=== PATIENT | female | born 1955 | race Caucasian/White ===

== ENCOUNTER 2017-02-02 12:09 | Emergency (ER) | payer OTHER ==
[2017-02-02 13:29] LABS: BILIRUBIN NEGATIVE (NEGATIVE); BLOOD 2+ Ery/uL (NEGATIVE); CLARITY CLEAR (CLEAR); COLOR YELLOW (YELLOW); GLUCOSE (U) TRACE mg/dL (NORMAL); KETONE (U) NEGATIVE (NEGATIVE); LEUKOCYTES 1+ Leu/uL (NEGATIVE); NITRITE POSITIVE (NEGATIVE); PROTEIN TRACE (LOW) mg/dL (NEGATIVE); SPECIFIC GRAVITY 1.025 (1.001-1.030); UROBILINOGEN 0.2 mg/dL (0.2-1.0); pH 5.5 (5.0-9.0)
[2017-02-02 13:33] LABS: BACTERIA 3+; MUCOUS TRACE; URINARY RBC 20-50
[2017-02-02 16:17] LABS: CREATININE 0.6 mg/dL (0.5-1.0); POTASSIUM 3.9 mmol/L (3.5-5.1)
[2017-02-02 17:01] LABS: BASOPHIL 0.2 % (0-2); EOSINOPHIL 0.8 % (0-5); HCT 36.6 % (37.0-47.0); HGB 12.4 g/dl (12.5-16.0); LYMPHOCYTE 20.6 % (15-48); MCH 31.1 pg (25.0-31.0); MCHC 33.9 g/dL (32.0-36.0); MCV 91.7 fL (78.0-100.0); MONOCYTE 14.1 % (0-12); MPV 10.6 fL (6.0-9.5); NEUTROPHIL 64.3 % (41-80); PLT 213 K/uL (150-400); RBC 3.99 M/uL (4.20-5.40); RDW 13.5 % (11.5-14.0); WBC 10.3 K/uL (4.0-10.5)
== END 2017-02-02 18:00 | disposition home or self-care (01) ==
LOC: FER 12:09
PROVIDERS: Emergency Medicine
DX: N13.2 Hydronephrosis with renal and ureteral calculous obstruction (principal); I25.2 Old myocardial infarction; E11.9 Type 2 diabetes mellitus without complications; E78.5 Hyperlipidemia, unspecified; Z87.442 Personal history of urinary calculi; Z79.899 Other long term (current) drug therapy; Z79.84 Long term (current) use of oral hypoglycemic drugs; Z90.49 Acquired absence of other specified parts of digestive tract; Z90.710 Acquired absence of both cervix and uterus
CPT/HCPCS: 36415; 80053; 81001; 85025; J2270

== ENCOUNTER 2021-05-18 16:28 | Emergency (ER) | payer MEDICARE, OTHER ==
[~2021-05-18 16:28] MED LIST: ASPIRIN EC81 MG PO; BACTRIM DS TAB1 EACH PO; BREO ELLIPTA 11 EACH INH; CLARITIN10 MG PO; CYMBALTA 30MG C30 MG PO; DUONEB 2.5-0.5M1 AMP INH; EYE DROP TEARS15 ML EYEBOTH; FLONASE ALLER15.8 ML; GLUCOTROL5 MG PO; LIPITOR20 MG PO; METFORMIN HCL500 MG PO; NEURONTIN300 MG PO; NORVASC2.5 MG PO; NORVASC5 MG PO; PREDNISONE 10MG10 MG PO; PRINIVIL20 MG PO; TIZANIDINE HCL4 M1 PO; TOPROL XL 25MG25 MG PO; VENTOLIN (2.5 MG/3 M INH; VICTOZA 2-0.6 MG/0.1 SC
[2021-05-18 17:14] LABS: BILIRUBIN NEGATIVE (NEGATIVE); BLOOD NEGATIVE Ery/uL (NEGATIVE); CLARITY CLEAR (CLEAR); COLOR YELLOW (YELLOW); GLUCOSE (U) 1+ mg/dL (NORMAL); LEUKOCYTES 1+ Leu/uL (NEGATIVE); NITRITE POSITIVE (NEGATIVE); PROTEIN NEGATIVE (NEGATIVE); SPECIFIC GRAVITY >=1.030 (1.001-1.030); UROBILINOGEN 0.2 mg/dL (0.2-1.0); pH 5.5 (5.0-9.0)
[2021-05-18 17:18] LABS: BASOPHIL 0.4 % (0-2); EOSINOPHIL 3.4 % (0-7); HCT 39.3 % (37.0-47.0); HGB 13.2 g/dl (12.5-16.0); LYMPHOCYTE 27.4 % (15-48); MCH 30.1 pg (25.0-31.0); MCHC 33.6 g/dL (32.0-36.0); MCV 89.5 fL (78.0-100.0); MONOCYTE 7.3 % (0-12); MPV 9.9 fL (6.0-9.5); NEUTROPHIL 61.2 % (41-80); NRBC 0; PLT 236 K/uL (150-400); RBC 4.39 M/uL (4.20-5.40); RDW 12.7 % (11.5-14.0); WBC 10.7 K/uL (4.0-10.5)
[2021-05-18 17:30] LABS: URINARY WBC TNTC
[2021-05-18 17:31] LABS: BACTERIA 3+; MUCOUS TRACE
[2021-05-18 17:33] LABS: ALBUMIN 3.3 g/dL (3.4-5.0); BILIRUBIN - TOTAL 0.8 mg/dL (0.2-1.0); BUN/CREAT RATIO (CALC) 23.9 RATIO; CREATININE 0.67 mg/dL (0.51-0.95); GLOBULIN (CALCULATION) 3.7 g/dL; POTASSIUM 4.6 mmol/L (3.5-5.1)
[2021-05-18] MEDS ORDERED: BACTRIM DS TAB1 EAC1 PO (19:15)
== END 2021-05-18 19:35 | disposition home or self-care (01) ==
LOC: FER 16:28
PROVIDERS: Nurse Practitioner Family
DX: N39.0 Urinary tract infection, site not specified (principal); E11.9 Type 2 diabetes mellitus without complications; I10 Essential (primary) hypertension; Z90.49 Acquired absence of other specified parts of digestive tract; Z98.84 Bariatric surgery status; Z79.899 Other long term (current) drug therapy; Z79.84 Long term (current) use of oral hypoglycemic drugs
CPT/HCPCS: 36415; 80053; 81001; 85025

== ENCOUNTER 2021-07-16 11:48 | Inpatient (IN) | payer MEDICARE, OTHER ==
[~2021-07-16] VITALS: Ht 149.9 cm; Wt 92.1 kg
[~2021-07-16 11:48] MED LIST changes: +BACTRIM DS TAB1 EAC1 PO
[2021-07-16 12:23] LABS: BASOPHIL 0.4 % (0-2); EOSINOPHIL 1.6 % (0-7); HCT 38.4 % (37.0-47.0); HGB 12.3 g/dl (12.5-16.0); LYMPHOCYTE 31.6 % (15-48); MCH 29.5 pg (25.0-31.0); MCV 92.1 fL (78.0-100.0); MPV 10.3 fL (6.0-9.5); NEUTROPHIL 56.1 % (41-80); NRBC 0; PLT 229 K/uL (150-400); RBC 4.17 M/uL (4.20-5.40)
[2021-07-16 12:31] LABS: INR 1.06 (0.9-1.2); PROTHROMBIN TIME 13.2 SECONDS (11.8-13.4); PTT 24.2 SECONDS (24.4-34.7)
[2021-07-16 12:39] LABS: ALBUMIN 3.2 g/dL (3.4-5.0); BILIRUBIN - TOTAL 0.9 mg/dL (0.2-1.0); BUN/CREAT RATIO (CALC) 25.7 RATIO; CREATININE 1.05 mg/dL (0.51-0.95); GLOBULIN (CALCULATION) 3.3 g/dL; POTASSIUM 4.6 mmol/L (3.5-5.1); TOTAL PROTEIN 6.5 g/dL (6.4-8.2)
[2021-07-16 13:27] LABS: BILIRUBIN NEGATIVE (NEGATIVE); BLOOD NEGATIVE Ery/uL (NEGATIVE); CLARITY CLEAR (CLEAR); COLOR YELLOW (YELLOW); GLUCOSE (U) 3+ mg/dL (NORMAL); LEUKOCYTES NEGATIVE Leu/uL (NEGATIVE); NITRITE NEGATIVE (NEGATIVE); PROTEIN NEGATIVE (NEGATIVE); SPECIFIC GRAVITY 1.015 (1.001-1.030); UROBILINOGEN 0.2 mg/dL (0.2-1.0)
[2021-07-16] MEDS ORDERED: LIPITOR40 MG PO (21:02)
[2021-07-16] MEDS ORDERED: GABAPENTIN800 MG PO (21:04)
[2021-07-16] MEDS ORDERED: PRINIVIL20 MG PO (21:06)
[2021-07-17 06:10] LABS: BASOPHIL 0.4 % (0-2); LYMPHOCYTE 36.6 % (15-48); MCH 29.6 pg (25.0-31.0); MCHC 31.6 g/dL (32.0-36.0); MCV 93.6 fL (78.0-100.0); MONOCYTE 8.4 % (0-12); MPV 10.7 fL (6.0-9.5); NEUTROPHIL 53.4 % (41-80); NRBC 0; PLT 201 K/uL (150-400); RBC 4.06 M/uL (4.20-5.40); RDW 13.7 % (11.5-14.0); WBC 8.2 K/uL (4.0-10.5)
[2021-07-17 06:38] LABS: ALBUMIN 2.7 g/dL (3.4-5.0); BILIRUBIN - TOTAL 0.4 mg/dL (0.2-1.0); BUN/CREAT RATIO (CALC) 20.2 RATIO; CREATININE 1.09 mg/dL (0.51-0.95); GLOBULIN (CALCULATION) 2.8 g/dL; POTASSIUM 4.4 mmol/L (3.5-5.1); TOTAL PROTEIN 5.5 g/dL (6.4-8.2)
[2021-07-17 06:53] LABS: CKMB 0.6 ng/mL (0.0-3.6)
[2021-07-18 06:09] LABS: BASOPHIL 0.6 % (0-2); EOSINOPHIL 3.1 % (0-7); HCT 37.4 % (37.0-47.0); HGB 11.4 g/dl (12.5-16.0); LYMPHOCYTE 44.1 % (15-48); MCH 29.4 pg (25.0-31.0); MCHC 30.5 g/dL (32.0-36.0); MCV 96.4 fL (78.0-100.0); MONOCYTE 8.2 % (0-12); MPV 10.2 fL (6.0-9.5); NEUTROPHIL 43.7 % (41-80); NRBC 0; PLT 195 K/uL (150-400); RBC 3.88 M/uL (4.20-5.40); RDW 13.8 % (11.5-14.0); WBC 6.5 K/uL (4.0-10.5)
[2021-07-18 06:33] LABS: ALBUMIN 2.5 g/dL (3.4-5.0); BILIRUBIN - TOTAL 0.4 mg/dL (0.2-1.0); BUN/CREAT RATIO (CALC) 26.1 RATIO; CREATININE 0.69 mg/dL (0.51-0.95); GLOBULIN (CALCULATION) 3.3 g/dL; POTASSIUM 4.2 mmol/L (3.5-5.1); TOTAL PROTEIN 5.8 g/dL (6.4-8.2)
--- NOTE | 2021-07-18 12:43 | NUR ---
Nutrition Assessment: 66 YOF admitted with near syncope. PMH: HTN, T2DM with peripheral neuropathy, CAD, HLD, gastric bypass s/p reversal with Heath fundoplication, kidney stone removal. GI: WNL Skin: No wounds of concern Meds: Sennekot, miralax, dulcolax, SSI, MVI, metformin, glipizide, gabapentin, Pepcid, zofran, MOM, NS Labs: 07/18/21 results reviewed: OOR- glu 216, AST 11, TP 5.8, ALb 2.5, ADOLFO 21, Chart reviewed, events noted. Subjective eval- pt denied food allegies and reports a good appetite/normal satiation att. Pt c/o constipation, denied n/v and denied chewing/swallowing difficulty. Pt states that she plans to begin ONS regimen at home for added nutrient density, RD encouraged CCHO and adequate protein. Pt had no further concerns. Nutrition Dx: Obesity class III r/t caloric/metabolic imbalace AEB BMI 40.9, 206% IBW. Intervention: Continue current nutrition POC, no further recommendations att. Monitoring: RD will f/u 1-2x/week per protocol, monitor PO intake, wt, and labs. ~Tracee Acevedo, MS, RDN, LD
[2021-07-19 05:33] LABS: BASOPHIL 0.4 % (0-2); EOSINOPHIL 3.3 % (0-7); HCT 38.5 % (37.0-47.0); HGB 12.5 g/dl (12.5-16.0); LYMPHOCYTE 36.6 % (15-48); MCH 29.3 pg (25.0-31.0); MCHC 32.5 g/dL (32.0-36.0); MONOCYTE 9.5 % (0-12); MPV 10.1 fL (6.0-9.5); NEUTROPHIL 49.9 % (41-80); NRBC 0; PLT 209 K/uL (150-400); RBC 4.26 M/uL (4.20-5.40); RDW 13.6 % (11.5-14.0); WBC 7.3 K/uL (4.0-10.5)
[2021-07-19 05:35] LABS: MCV 90.4 fL (78.0-100.0)
[2021-07-19 06:12] LABS: ALBUMIN 2.8 g/dL (3.4-5.0); BILIRUBIN - TOTAL 0.6 mg/dL (0.2-1.0); BUN/CREAT RATIO (CALC) 24.6 RATIO; CREATININE 0.61 mg/dL (0.51-0.95); GLOBULIN (CALCULATION) 3.1 g/dL; MAGNESIUM 1.6 mg/dL (1.8-2.4); POTASSIUM 4.5 mmol/L (3.5-5.1); TOTAL PROTEIN 5.9 g/dL (6.4-8.2)
[2021-07-19 06:20] LABS: PRO-BNP 591 pg/mL (<125)
[2021-07-19] MEDS ORDERED: MIRALAX17 GM PO (08:19)
[2021-07-19] MEDS ORDERED: HYDROCODON-ACE1 EAC6 PO (08:19)
--- NOTE | 2021-07-19 12:24 | NUR ---
ORDERED OUTPT THERAPY RECOMMENDED BY PT. PT. REQUESTED OUTP. THERAPY AT [facility]. AND SHE REQUESTED FROYLAN, THERAPIST. PER [facility] THE EARLIEST APPT. IS 07/24/21 @ 2:30 P.M. PT. AGREED TO THAT APPT. BECAUSE SHE WANTS FROYLAN. PT. HAS A ROLLING WALKER. ADVISED NURSE, ALFONSO.
== END 2021-07-19 12:40 | disposition home health service (06) | DRG 682 ==
LOC: FER 11:48 → FMS 19:16 → FTCU 19:16 → FMS 07-17 08:32
PROVIDERS: Emergency Medicine; Family Medicine; Nurse Practitioner; ADMIT Internal Medicine
PROC: 3E033XZ Introduction of Vasopressor into Peripheral Vein, Percutaneous Approach (ICD-10-PCS; principal; 2021-07-16)
DX: N17.9 Acute kidney failure, unspecified (principal); R57.1 Hypovolemic shock; I95.1 Orthostatic hypotension; E86.0 Dehydration; Z20.822 Contact with and (suspected) exposure to COVID-19; E11.9 Type 2 diabetes mellitus without complications; I25.10 Atherosclerotic heart disease of native coronary artery without angina pectoris; I10 Essential (primary) hypertension; E11.42 Type 2 diabetes mellitus with diabetic polyneuropathy; E78.5 Hyperlipidemia, unspecified; M54.5 Low back pain; W19.XXXA Unspecified fall, initial encounter; Z79.84 Long term (current) use of oral hypoglycemic drugs; Z79.82 Long term (current) use of aspirin; Z79.51 Long term (current) use of inhaled steroids; Z79.899 Other long term (current) drug therapy; Z88.6 Allergy status to analgesic agent; Z90.710 Acquired absence of both cervix and uterus; Z90.49 Acquired absence of other specified parts of digestive tract; Z95.5 Presence of coronary angioplasty implant and graft; Z90.89 Acquired absence of other organs; Z98.890 Other specified postprocedural states
CPT/HCPCS: 36415; 71275; 72193; 73560; 73610; 73630; 80053; 80061; 81003; 82553; 83735; 83880; 84484; 85025; 85610; 85730; 93005; 94640; 97110; 97162; 97530-GP; J1650; J1720; J1885; J2270; J7030; Q9967; U0002

== ENCOUNTER 2022-01-09 20:24 | Emergency (ER) | payer MEDICARE, OTHER ==
[~2022-01-09 20:24] MED LIST changes: +GABAPENTIN800 MG PO; +HYDROCODON-ACE1 EAC6 PO; +LIPITOR40 MG PO; +MIRALAX17 GM PO
[2022-01-09] MEDS ORDERED: NORCO 5-325 TA1 EACH PO (22:53)
== END 2022-01-09 23:22 | disposition home or self-care (01) ==
LOC: FER 20:24
DX: S63.501A Unspecified sprain of right wrist, initial encounter (principal); S60.222A Contusion of left hand, initial encounter; S60.221A Contusion of right hand, initial encounter; S00.83XA Contusion of other part of head, initial encounter; S00.81XA Abrasion of other part of head, initial encounter; I10 Essential (primary) hypertension; E11.9 Type 2 diabetes mellitus without complications; W01.0XXA Fall on same level from slipping, tripping and stumbling without subsequent striking against object, initial encounter; Y92.410 Unspecified street and highway as the place of occurrence of the external cause
CPT/HCPCS: 70450; 72125; 73110; 73130

== ENCOUNTER 2022-01-25 14:34 | Emergency (ER) | payer MEDICARE, OTHER ==
[~2022-01-25 14:34] MED LIST changes: +NORCO 5-325 TA1 EACH PO
== END 2022-01-25 17:38 | disposition home or self-care (01) ==
LOC: FER 14:34
DX: M25.561 Pain in right knee (principal); M25.562 Pain in left knee; G89.29 Other chronic pain; I10 Essential (primary) hypertension; E11.9 Type 2 diabetes mellitus without complications
CPT/HCPCS: 73564; 93971